=== PATIENT | female | born 1940 | race Caucasian/White ===

== ENCOUNTER → 2018-10-24 | Outpatient (CLI) | payer MEDICARE ==
[~2018-10-24] MED LIST: REGADENOSON 0.4 MG/5 ML DISP.SYRIN. IV ONE
--- NOTE | 2018-10-24 14:46 | PCVCIMAG ---
APPROVED REPORT Study performed: 10/24/2018 07:48:28 EXAM: Comprehensive 2D, Doppler, and color-flow Echocardiogram Patient Location: Echo lab Status: routine BSA: 2.04 HR: 80 bpmBP: 140/60 mmHg Rhythm: RBBB Other Information Study Quality: Adequate Risk Factors: Cardiac Risk Factors: HTN Indications CAD LAD stent 2D Dimensions IVSd: 12.82 (7-11mm) LVDd: 46.16 mm PWd: 14.00 (7-11mm)Ascending Ao: 55.70 (22-36mm) LVDs: 36.65 (25-40mm) Left Atrium: 41.89 (27-40mm) Aortic Root: 48.91 mm LV Single Plane 4CH: 58.60 % LV Single Plane 2CH: 68.00 % Biplane EF: 64.0 % Volumes Left Atrial Volume (Systole) Single Plane 4CH: 107.35 mLSingle Plane 2CH: 121.20 mL LA ESV Index: 56.00 mL/m2 Aortic Valve AoV Peak Horacio.: 1.82 m/s AO Peak Gr.: 13.23 mmHgLVOT Max P.52 mmHg LVOT Max V: 1.38 m/s AI Vmax: 4.51 m/s AI Miller: 3.85 m/s2 AI PHT: 340.11 ms Mitral Valve E/A Ratio: 0.9 MV Decel. Time: 286.20 ms MV E Max Horacio.: 1.01 m/s MV A Horacio.: 1.13 m/s IVRT: 124.57 ms Pulmonary Valve PV Peak Horacio.: 1.19 m/sPV Peak Gr.: 5.62 mmHg Pulmonary Vein P Vein S: 0.29 m/s P Vein D: 0.39 m/s P Vein S/D Ratio: 0.74 Tricuspid Valve TR Peak Horacio.: 2.60 m/s TR Peak Gr.: 27.13 mmHg Left Ventricle The left ventricle is normal size. There is normal LV segmental wall motion. Mild concentric left ventricular hypertrophy. Left ventricular systolic function is normal. The left ventricular ejection fraction is within the normal range. LVEF is 60%. Grade I - abnormal relaxation pattern. Right Ventricle The right ventricle is normal size. The right ventricular systolic function is normal. Atria Left atrium is severely dilated. Right atrium is mildly dilated. Aortic Valve The aortic valve is normal in structure. Mild aortic regurgitation. There is no aortic valvular stenosis. Mitral Valve Heavy posterior mitral annular calcification. Leaflets are normal in appearance. Moderate to severe mitral regurgitation No evidence of mitral valve stenosis. Tricuspid Valve The tricuspid valve is normal in structure. Mild tricuspid regurgitation with PAP of 34 mmHg. Pulmonic Valve The pulmonary valve is normal in structure. There is no pulmonic valvular regurgitation. 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 The ascending aorta is dilated to 5.6 cm. IVC is normal in size and collapses >50% with inspiration. Pericardium There is no pericardial effusion. There is no pleural effusion. <Conclusion> The left ventricle is normal size. Mild concentric left ventricular hypertrophy. Left ventricular systolic function is normal. The right ventricle is normal size. Left atrium is severely dilated. Right atrium is mildly dilated. Mild aortic regurgitation. Heavy posterior mitral annular calcification. Leaflets are normal in appearance. Moderate to severe mitral regurgitation Mild tricuspid regurgitation with PAP of 34 mmHg. 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 The ascending aorta is dilated to 5.6 cm.
--- NOTE | 2018-10-24 14:52 | PCVCIMAG ---
APPROVED REPORT Imaging Protocol: Rest Tc-99m/Stress Tc-99m 1 day Study performed: 10/24/2018 09:18:17 Indication: CAD , Pre-Operative CV evaluation Patient Location: Out-Patient Stress Nurse: Bailey Gomez RN, Lali Javed RN NE Tech:Alayna Luciokhadar [facility] Ht: 5 ft 8 in Wt: 205 lbs BSA: 2.07 m2 HR: 68 bpm BP: 151/67 mmHg BMI: 31.16 Rhythm: Sinus Rhythm, IVCD, PVC's, First degree AV Block Medical History Medical History: HTN, Hyperlipidemia, AAA Medications: ASA, Lisinopril-HCTZ, Metoprolol, Simvastatin Allergies: Sulfa Cardiac Risk Factors: Age Previous Cardiac Procedures: SIGRID to LAD in 2013 Pretest Chest Pain Characteristics: No chest pain Physical Disabilities: Uses a cane Meds Held (24 hrs): Metoprolol Resting Data Rest SPECT myocardial perfusion imaging was performed in supine position 45 minutes following the intravenous injection of 10.3 mCi of Tc-99m Sestamibi. Time of rest injection: 0830 Administration Route: IV Administration Site: Left AC Pharmacologic Stress Pharmacologic stress test was performed by injecting Regadenoson 0.4 mg IV push over 10-15 seconds immediately followed by the intravenous injection of 32.3 mCi of Tc-99m Sestamibi. Time of stress injection: 1000 Date: 10/24/2018 Administration Site: Left AC Gated Stress SPECT was performed 45 minutes after stress injection. The images were gated to evaluate regional wall motion and calculate left ventricular ejection fraction. Stress Test Details Stress Test: Pharmacologic stress testing performed using 0.4 mg of regadenoson per 5 mL given IV over 10 seconds. Reason for pharmacologic stress test: uses a cane. HRMax Heart Rate (APMHR): 140 bpm Resting HR: 68 bpmTarget HR (85% APMHR): 119 bpm Max HR Achieved: 90 bpm % of APMHR: 64 Recovery HR: 88 bpm BP Resting BP: 151/67 mmHg Max BP: 140/64 mmHg Recovery BP: 123/60 mmHg ECG Resting ECG: Sinus Rhythm, First degree AV Block, LBBB Stress ECG: Sinus Rhythm, First degree AV Block, LBBB ST Change: Nondiagnostic LBBB Arrhythmia: Ventricular Escape Beats Recovery ECG: Sinus Rhythm, IVCD, PVC's, First degree AV Block Clinical Reason for Termination: Completed protocol Stress Symptoms: None Exercise duration: 0 min 55 sec Study Quality Artifact: Moderate Breast artifact Study Data Post stress, the left ventricular ejection was 74%.. SSS: 5 SRS: 3 SDS: 2 TID = 1.08. Perfusion There is a medium area of moderately reduced uptake in the mid segment of the anterior wall which is seen on the stress images as well as the resting images. This area thickens and moves normally and is most consistent with attenuation artifact. Wall Motion Normal left ventricular wall motion. Nuclear Conclusion ECG Findings: non-diagnostic Clinical Findings: non-diagnostic Nuclear Findings: negative for ischemia Exercise Capacity: not assessed Left Ventricular Function: normal This study is of low probability for inducible ischemia or prior infarct. Normal global and segmental LV systolic function. Artifact: Moderate Breast artifact
== END | disposition home or self-care (01) ==
LOC: PCVCIMAG 07:51
PROVIDERS: ATTEND Internal Medicine Cardiovascular Disease
DX: Z01.810 Encounter for preprocedural cardiovascular examination (principal); I08.3 Combined rheumatic disorders of mitral, aortic and tricuspid valves; I25.10 Atherosclerotic heart disease of native coronary artery without angina pectoris; I10 Essential (primary) hypertension; E78.5 Hyperlipidemia, unspecified; I71.2 Thoracic aortic aneurysm, without rupture; I71.4 Abdominal aortic aneurysm, without rupture; Z95.1 Presence of aortocoronary bypass graft
CPT/HCPCS: 78452; 93017; 93306; A9500; J2785